=== PATIENT | female | born 1955 | race Caucasian/White ===

== ENCOUNTER → 2024-06-04 07:57 | Outpatient (REF) | payer OTHER, SELFPAY | LOC: WDC 07:57 | PROVIDERS: ATTENDING PHYSICIAN Nurse Practitioner Primary Care | DX: Z12.31 Encounter for screening mammogram for malignant neoplasm of breast (principal) | CPT/HCPCS: 77063; 77067; 77080 ==

== ENCOUNTER → 2024-09-22 16:33 | Outpatient (REF) | payer OTHER, SELFPAY | LOC: RAD 16:33 | PROVIDERS: ATTENDING PHYSICIAN Internal Medicine Rheumatology; FAMILY PHYSICIAN Nurse Practitioner Primary Care | DX: M06.4 Inflammatory polyarthropathy (principal); M17.10 Unilateral primary osteoarthritis, unspecified knee | CPT/HCPCS: 73560; 73565 ==

== ENCOUNTER → 2025-06-07 06:57 | Outpatient (REF) | payer OTHER, SELFPAY | LOC: WDC 06:57 | PROVIDERS: ATTENDING PHYSICIAN Nurse Practitioner Primary Care | DX: Z12.31 Encounter for screening mammogram for malignant neoplasm of breast (principal) | CPT/HCPCS: 77063; 77067 ==